=== PATIENT | male | born 1965 | race Caucasian/White ===

== ENCOUNTER 2025-05-04 15:08 | Outpatient (AMB) | payer OTHER, SELFPAY ==
--- OUTSIDE RECORDS SUMMARY | 2025-05-04 18:18 | XMS_ITS ---
Author Name [facility] Organization Unknown Care Team Organization Name Specialty Phone Email Start Date End Da te [facility] Ranjana Primary Care 01/01/2023 04/14/2024 [facility] Ana Paula Black Primary Care 07/04/2022 4
--- OUTSIDE RECORDS SUMMARY | 2025-05-04 18:19 | XMS_ITS | Clinical Summary ---
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 01/08/2025 Low libido 11/03/2024 Allergic rhinitis 11/24/2005 Immunizations Name Administration Dates Next Due PPD Test 05/26/2002 Tdap Tetanus diptheria acell ular pertussis (Boostrix; Adacel) 7yo and older 10/09/2022,01/13/2009 Surgical History Surgery Date Site/Laterality Comments APPENDECTOMY age 14 PROCEDURE: HISTORICAL APPENDECTOMY MULTIPLE TOOTH EXTRACTIONS age 21 PROCEDURE: EACH ADD TOOTH EXTRACTION; COMMENT: 2 extracted COLONOSCOPY 09/01/16 PROCEDURE: HISTORICAL COLONOSCOPY; COMMENT: hemorrhoids; repeat in 10 yrs Medical History Medical History Date Comments Allergic rhinitis, cause unspecified DX:Allergic rhinitis, cause unspecified Family History Medical History Relation Name Comments Heart attack Father Stroke Maternal Grandfather No Known Problems Mother Prostate cancer Paternal Grandfather Breast cancer Paternal Grandmother No Known Problems Sister 1 No Known Problems Sister 2 No Known Problems Sister 3 ADD / ADHD Son 1 ADD / ADHD Son 2 Relation Name Status Comments Father Alive NE Maternal Grandfather (Age 80's) stroke Maternal Grandmother UNK Mother Alive healthy Paternal Grandfather (Age 90'S) CA PROSTATE Paternal Grandmother (Age 60'S) CA BREAST Sister 1 Alive Healthy Sister 2 Alive Healthy Sister 3 Alive Healthy Son 1 Alive Healthy Son 2 Alive ADD Social History Tobacco Use Types Packs/Day Years Used Date Smoking Tobacco: Never Smokeless Tobacco: Never Tobacco Cessation:Counseling Given: Not Answered Alcohol Use Standard Drinks/Week Comments Yes 0 (1 standard drink = 0.6 oz pur e alcohol) Housing Instability Answer Date Recorde d Are you worried that in the next 2 months you may not have stable housing? No 11/02/2024 Food Access & Nutrition Answer Date Rec orded Do you have access to a vari ety of food including fruits and vegetables? Yes 11/02/2024 Access to Healthcare Answer Date Record ed Within the last 3 months, ho jose antonio many times did you visit the emergency department for your medical care? 0 11/02/2024 Health Literacy Answer Date Recorded How often do you need to hav e someone help you when you read instructions, pamphlets, or other written material from your doctor or pharmacy? Never 11/02/2024 Caregiver: How often do you need to have someone help you when you read instructions, pamphlets, or other written material from your doctor or pharmacy? Not on file 11/02/2024 Financial Risk Answer Date Recorded How hard is it for you to pa y for the very basics like food, housing, medical care, and air conditioning / heating? Not very hard 11/02/2024 Transportation Answer Date Recorded Has the lack of transportati on kept you from meetings, work, or from getting things needed for daily living? No Has the lack of transportati on kept you from medical appointments or from getting medications? No 11/02/2024 Social Isolation Answer Date Recorded How often do you feel lonely or isolated from th ose around you? Never 11/02/2024 Food Risk Answer Date Recorded Within the past 12 months we worried whether our food would run out before we got money to buy more. Never true 11/02/2024 Within the past 12 months th e food we bought just didn't last and we didn't have money to get more. Never true 11/02/2024 Dependent Care Answer Date Recorded Do you need help finding or paying for care for your loved ones. For example, child care provider or elderly care for an older adult? No 11/02/2024 Education Answer Date Recorded Do you think completing more education or training, like finishing a GED, going to college, or learning a trade, would be helpful for you? No 11/02/2024 Employment and Income Answer Date Recor ded During the last four weeks, have you been actively looking for work? No 11/02/2024 Living Situation Answer Date Recorded What is your living situation? 0 11/02/2024 Sex and Gender Information Value Date Recorded Sex Assigned at Male 05/24/2022 1:15 PM EDT Legal Sex Male 1:03 PM EDT Gender Identity Male 05/24/2022 1:15 PM EDT Sexual Orientation Straight 05/24/2022 1: 15 PM EDT Obstetrics History Last Filed Vital Signs Vital Sign Reading Time Taken Comments Blood Pressure 110/62 01/27/2025 11:23 AM EDT Pulse 78 01/27/2025 11:23 AM EDT Temperature 36.6 C (97.9 F) 01/27/2025 11:23 AM EDT Respiratory Rate 16 01/27/2025 11:23 AM EDT Oxygen Saturation - - Inhaled Oxygen Concentration - - Weight 97.1 kg (214 lb) 01/27/2025 11:23 AM EDT Height 184.8 cm (6' 0.76 ) 01/27/2025 11:23 AM E DT Body Mass Index 28.42 01/27/2025 11:23 AM EDT Plan of Treatment Upcoming Encounters Date Type Department Care Team (Late st Contact Info) Description 11/03/2025 8:45 AM EDT Office Visit Adult Medicine [facility] [address] [place] [address] Emili Chilel MD [address] [place] [address] Health Maintenance Due Date Last Done Comments Hepatitis B Vaccines (1 of 3 - 19+ 3-dose series) 1985 Pneumococcal Vaccine: 50+ Years (1 of 1 - PCV) 2016 Zoster Vaccines (1 of 2) 2016 COVID-19 Vaccine ( - 2024-2 6 season) 2025 01/11/2021, 12/21/2020 Influenza Vaccine (#1) 2025 Social Influencers of Health Screening 11/02/2025 11/02/2024 Colorectal Cancer Screening: Colonoscopy 09/01/2026 09/01/2016 Cholesterol Screening (Lipid Panel) 01/06/2030 01/06/2025, 11/06/2022 DTaP,Tdap,and Td Vaccines (3 - Td or Tdap) 10/09/2032 10/09/2022, 01/13/2009 HIV Screening Completed 02/14/2007 Hepatitis C Screening Completed 11/06/2022 Depression Screening Completed 11/02/2024 HIB Vaccines Aged Out No longer eligi ble based on patient's age to complete this topic HPV Vaccines Aged Out No longer eligi ble based on patient's age to complete this topic Hepatitis A Vaccines Aged Out No long er eligible based on patient's age to complete this topic IPV Vaccines Aged Out No longer eligi ble based on patient's age to complete this topic MMR Vaccines Aged Out No longer eligi ble based on patient's age to complete this topic Meningococcal ACWY Vaccine Aged Out N o longer eligible based on patient's age to complete this topic Meningococcal B Vaccine Aged Out No l onger eligible based on patient's age to complete this topic RSV Immunization Patients Under 20 months Aged Out No longer eligible b ased on patient's age to complete this topic Varicella Vaccines Aged Out No longer eligible based on patient's age to complete this topic Procedures Procedure Name Priority Date/Time Associated Diagnosis Comments FOLLICLE STIMULATING HORMONE Routine 02/10/2025 9:23 AM EDT Low testosterone level in male LUTEINIZING HORMONE Routine 02/10/2025 9 :23 AM EDT Low testosterone level in male TESTOSTERONE, TOTAL Routine 02/10/2025 9 :23 AM EDT Low testosterone level in male PROLACTIN Routine 02/10/2025 9:23 AM EDT Low testosterone level in male INSULIN-LIKE GROWTH FACTOR Routine 02/10/2025 9:23 AM EDT Low testosterone level in male CORTISOL Routine 02/10/2025 9:23 AM EDT Low testosterone level in male PROSTATE SPECIFIC ANTIGEN SCREEN Routine 02/10/2025 9:23 AM EDT Low testosterone level in male HEMOGLOBIN AND HEMATOCRIT Routine 02/10/2025 9:23 AM EDT Low testosterone level in male THYROID STIMULATING HORMONE Routine 02/10/2025 9:23 AM EDT Low testosterone level in male THYROXINE FREE Routine 02/10/2025 9:23 AM EDT Low testosterone level in male LIPID PANEL WITH REFLEX TO DIRECT LDL Routine 01/06/2025 1:10 PM EDT Routine general medical examination at a health care facility HEPATITIS C SCREENING Routine 11/06/2022 COLONOSCOPY Routine 09/01/2016 HIV SCREENING Routine 02/14/2007 from Last 3 Months or Most Recently Relevant to Health Maintenance Results * Prostate specific antigen screen (02/10/2025 9:23 AM EDT) PSA 1.72 0.00 - 4.00 ng/mL LAB CHEMISTRY METHOD 02/10/2025 4:20 PM EDT [facility] Blood Venous blood specimen / Unknown Venipuncture / Unknown 02/10/2025 9:23 AM EDT 02/10/2025 9:23 AM EDT Narrative [facility] - 02/10/2025 4:20 PM EDT The Siemens Advia Centaur Chemiluminescent Immunoassay is used. Results obtained with different assay methods or kits cannot be used interchangeably. Results cannot be interpreted as absolute evidence of the presence or absence of malignant disease. us Colin Casanova MD LAB BLOOD ORDERABLES Final Resul t [facility] [address] [place] [address], [place] [phone] * Hemoglobin and hematocrit (02/10/2025 9:23 AM EDT) [facility] Hemoglobin 14.9 13.5 - 17.5 g/dL LAB HEMETOLOGY METHOD 02/10/2025 12:19 PM EDT [facility] Hematocrit 44.9 42.0 - 54.0 % LAB HEMETOLOGY METHOD 02/10/2025 12:19 PM EDT [facility] Blood Venous blood specimen / Unknown Venipuncture / Unknown 02/10/2025 9:23 AM EDT 02/10/2025 9:23 AM EDT us Colin Casanova MD LAB BLOOD ORDERABLES Final Resul t Performing Organization Address City/[facility]/ZIP Co de Phone Number [facility] [address] [place] [address], [place] [phone] * Prolactin (02/10/2025 9:23 AM EDT) [facility] Prolactin 6.60 2.50 - 17.40 ng/mL LAB CHEMISTRY METHOD 02/10/2025 3:14 PM EDT [facility] Blood Venous blood specimen / Unknown Venipuncture / Unknown 02/10/2025 9:23 AM EDT 02/10/2025 9:23 AM EDT us Colin Casanova MD LAB BLOOD ORDERABLES Final Resul t [facility] [address] [place] [address], [place] [phone] * Insulin-like growth factor (02/10/2025 9:23 AM EDT) [facility] Insulin-like Growth Factor 1 158 68 - 247 ng/mL 02/12/2025 2:53 PM EDT [facility] Comment: Test performed at [facility], [address], [place] [address] Cristal Millan MD, PhD - Recycling Worker Blood Venous blood specimen / Unknown Venipuncture / Unknown 02/10/2025 9:23 AM EDT 02/10/2025 9:23 AM EDT Colin Casanova MD LAB BLOOD ORDERABLES Final Resul t Performing Organization Address City/[facility] Co de Phone Number [facility] [address] [place] [address] * Thyroid stimulating hormone (02/10/2025 9:23 AM EDT) TSH 1.14 0.40 - 4.00 mcIU/mL LAB CHEMISTRY METHOD 02/10/2025 6:06 PM EDT [facility] Blood Venous blood specimen / Unknown Venipuncture / Unknown 02/10/2025 9:23 AM EDT 02/10/2025 9:23 AM EDT Colin Casanova MD LAB BLOOD ORDERABLES Final Resul t Performing Organization Address [facility] de Phone Number [facility] [address] [place] [address], [place] [phone] * Thyroxine free (02/10/2025 9:23 AM EDT) Free T4 1.45 0.70 - 1.80 ng/dL LAB CHEMISTRY METHOD 02/10/2025 4:20 PM EDT [facility] Blood Venous blood specimen / Unknown Venipuncture / Unknown 02/10/2025 9:23 AM EDT 02/10/2025 9:23 AM EDT us Colin Casanova MD LAB BLOOD ORDERABLES Final Resul t Performing Organization Address City/[facility] Co de Phone Number [facility] [address] [place] [address], [place] [phone] * Testosterone, total (02/10/2025 9:23 AM EDT) Testosterone 327 229 - 902 ng/dL LAB CHEMISTRY METHOD 02/10/2025 6:05 PM EDT [facility] Blood Venous blood specimen / Unknown Venipuncture / Unknown 02/10/2025 9:23 AM EDT 02/10/2025 9:23 AM EDT Colin Casanova MD LAB BLOOD ORDERABLES Final Resul t [facility] [address] [place] [address], [place] [phone] * Luteinizing hormone (02/10/2025 9:23 AM EDT) Luteinizing Hormone 4.8 1.2 - 10.6 mIU/mL LAB CHEMISTRY METHOD 02/10/2025 3:14 PM EDT [facility] Blood Venous blood specimen / Unknown Venipuncture / Unknown 02/10/2025 9:23 AM EDT 02/10/2025 9:23 AM EDT Colin Casanova MD LAB BLOOD ORDERABLES Final Resul t [facility] [address] [place] [address], [place] [phone] * Follicle stimulating hormone (02/10/2025 9:23 AM EDT) Follicle Stimulating Hormone 5.1 0.7 - 10.8 mIU/mL LAB CHEMISTRY METHOD 02/10/2025 3:14 PM EDT [facility] Blood Venous blood specimen / Unknown Venipuncture / Unknown 02/10/2025 9:23 AM EDT 02/10/2025 9:23 AM EDT Colin Casanova MD LAB BLOOD ORDERABLES Final Resul t Performing Organization Address [facility]/ZIP Co de Phone Number [facility] [address] [place] [address], [place] [phone] * Cortisol (02/10/2025 9:23 AM EDT) Cortisol 15.3 mcg/dL LAB CHEMISTRY METHOD 02/10/2025 6:04 PM EDT [facility] Blood Venous blood specimen / Unknown Venipuncture / Unknown 02/10/2025 9:23 AM EDT 02/10/2025 9:23 AM EDT Narrative [facility] - 02/10/2025 6:04 PM EDT CORTISOL REFERENCE RANGE 8 AM SPEC: 5.0-23.0 mcg/dL 4 PM SPEC: 3.0-16.0 mcg/dL 8 PM SPEC: <5.0 mcg/dL Colin Casanova MD LAB BLOOD ORDERABLES Final Resul t Performing Organization Address [facility]/ZIP Co de Phone Number [facility] [address] [place] [address], [place] [phone] * (ABNORMAL) Lipid panel with reflex to direct LDL (01/06/2025 1:10 PM EDT) Cholesterol 211(H) 0 - 200 mg/dL LAB CHEMISTRY METHOD 01/06/2025 4:34 PM EDT [facility] Triglycerides 194(H) 0 - 150 mg/dL LAB CHEMISTRY METHOD 01/06/2025 4:34 PM EDT [facility] HDL 63 >=40 mg/dL LAB CHEMISTRY METHOD 01/06/2025 4:34 PM EDT [facility] LDL Calculated 109(H) 0 - 100 mg/dL LAB CHEMISTRY METHOD 01/06/2025 4:34 PM EDT [facility] VLDL Cholesterol Yousif 38.8 mg/dL LAB CHEMISTRY METHOD 01/06/2025 4:34 PM EDT [facility] Non HDL Chol. (LDL+VLDL) 148(H) <145 mg/dL LAB CHEMISTRY METHOD 01/06/2025 4:34 PM EDT [facility] Chol/HDL Ratio 3.3 0.0 - 4.4 LAB CHEMISTRY METHOD 01/06/2025 4:34 PM EDT [facility] Blood Venous blood specimen / Unknown Venipuncture / Unknown 01/06/2025 1:10 PM EDT 01/06/2025 1:10 PM EDT Emili Chilel MD LAB BLOOD ORDERABLES Final Resul t [facility] [address] [place] [address], * Hepatitis C Screening (11/06/2022) Hepatitis C Screening ABSTRACTED Tonya John MD HEALTH MAINTENANCE Final Result * Colonoscopy (09/01/2016) Pathologist [facility] Colonoscopy NO INTERPRETATION , ABSTRACTED Anatomical Region Laterality Modality Other Tonya John MD HEALTH MAINTENANCE Final Result * HIV Screening (02/14/2007) Pathologist [facility] HIV Screening ABSTRACTED Tonya John MD HEALTH MAINTENANCE Final Result from Last 3 Months or Most Recently Relevant to Health Maintenance Insurance [facility] Care Teams Destination Specialist Relationship Specialty Start Date End Date Emili Chilel MD [address] [place] [id number] PCP - General Internal Medicine 12/21/20
== END 2025-05-04 15:09 | disposition home or self-care (01) ==
LOC: HO.HMGAL 15:08
PROVIDERS: PCP Internal Medicine; Visit Provider Registered Nurse Emergency
DX: J30.89 Other allergic rhinitis (principal)
CPT/HCPCS: 95117; 95165

== ENCOUNTER 2025-06-01 12:01 | Outpatient (AMB) | payer OTHER, SELFPAY ==
--- OUTSIDE RECORDS SUMMARY | 2025-06-01 14:32 | XMS_ITS | Clinical Summary ---
Author Organization [facility] [place] Address [address] [place] [address] Care Team Providers Care Commissioning Specialist Name Role Phone Emili Chilel MD Primary Care Provider [phone] Allergies Active Allergy Reactions Criticality Noted Date Comments Dog Dander Medium 11/24/2005 Maple Flavor Runny nose Medium 11/24/2005 maple pollen Ragweed Runny nose Medium 11/24/2005 Medications No known medications Active Problems Problem Noted Date Diagnosed Date Low testosterone level in male 01/08/2025 Low libido 11/03/2024 Allergic rhinitis 11/24/2005 Immunizations Immunization Administration Dates Next Due PPD Test 05/26/2002 [...] 2 Relation Name Status Comments Father Alive MD Maternal Grandfather (Age 80's) stroke Maternal Grandmother [...] your loved ones. For example, child care sitter or elderly care for an older adult? [...] Date Recorded What is your living situation? Unrecognized valu e 11/02/2024 Sex and Gender Information Value Date [...] Medicine [facility] [address] [place] [phone] Emili Chilel MD [address] [place] [address] Health Maintenance Due Date Last Done Comments Hepatitis B Vaccines (1 of 3 - 19+ 3-dose series) 1985 Pneumococcal Vaccine: 50+ Years (1 of 1 - PCV) 2016 Zoster Vaccines (1 of 2) 2016 COVID-19 Vaccine (3 - 2024-2 6 season) 2025 01/11/2021, 12/21/2020 Influenza Vaccine (#1) 2025 Social Influencers of Health Screening 11/02/2025 11/02/2024 Colorectal Cancer Screening: Colonoscopy 09/01/2026 09/01/2016 Cholesterol Screening (Lipid Panel) 01/06/2030 01/06/2025, 11/06/2022 DTaP,Tdap,and Td Vaccines (3 - Td or Tdap) 10/09/2032 10/09/2022, 01/13/2009 RSV Immunization Adult Patients (1 - 1-dose 75+ series) 2041 HIV Screening Completed 02/14/2007 Hepatitis C Screening [...] Procedure Name Priority Date/Time Associated Diagnosis Comments LIPID PANEL WITH REFLEX TO DIRECT LDL Routine 01/06/2025 1:10 PM EDT Routine general medical examination at a health care facility HEPATITIS C SCREENING Routine 11/06/2022 COLONOSCOPY Routine 09/01/2016 HIV SCREENING Routine 02/14/2007 from Last 3 Months or Most Recently Relevant to Health Maintenance Results * (ABNORMAL) Lipid panel with reflex to direct LDL (01/06/2025 1:10 PM EDT) [facility] Cholesterol 211(H) 0 - 200 mg/dL LAB CHEMISTRY METHOD 01/06/2025 4:34 PM EDT [facility] Triglycerides 194(H) 0 - 150 mg/dL LAB CHEMISTRY METHOD 01/06/2025 4:34 PM EDT [facility] HDL 63 >=40 mg/dL LAB CHEMISTRY METHOD 01/06/2025 4:34 PM EDT [facility] LDL Calculated 109(H) 0 - 100 mg/dL LAB CHEMISTRY METHOD 01/06/2025 4:34 PM EDT [facility] VLDL Cholesterol Yousif 38.8 mg/dL LAB CHEMISTRY METHOD [facility]/06[facility]25 [facility] Non HDL Chol. (LDL+VLDL) 148(H) <145 mg/dL LAB CHEMISTRY METHOD 01/06/2025 4:34 PM EDT [facility] Chol/HDL Ratio 3.3 0.0 - 4.4 LAB CHEMISTRY METHOD 01/06/2025 4:34 PM T [facility] Blood Venous blood specimen / Unknown Venipuncture / Unknown 01/06/2025 1:10 PM EDT 01/06/2025 1:10 PM EDT Emili Chilel MD LAB BLOOD ORDERABLES Final Resul t [facility] [address] [place] [address], * Hepatitis C Screening (11/06/2022) [facility] Hepatitis C Screening ABSTRACTED Historical Provider HEALTH MAINTENANCE Final Result * Colonoscopy (09/01/2016) [facility] Colonoscopy NO INTERPRETATION , ABSTRACTED Anatomical Region Laterality Modality Other Historical Provider HEALTH MAINTENANCE Final Result * HIV Screening (02/14/2007) HIV Screening ABSTRACTED us Historical Provider HEALTH MAINTENANCE Final Result from Last 3 Months or Most Recently Relevant to Health Maintenance Insurance [facility] Care Teams Commissioning Specialist Relationship Specialty Start Date End Date Emili Chilel MD [address] [place] [phone] PCP - General Internal Medicine 12/21/20
== END 2025-06-01 12:05 | disposition home or self-care (01) ==
LOC: HO.HMGAL 12:01
PROVIDERS: Visit Provider Registered Nurse Emergency
DX: J30.89 Other allergic rhinitis (principal)
CPT/HCPCS: 95117; 95165

== ENCOUNTER 2025-07-22 09:12 | Outpatient (AMB) | payer OTHER, SELFPAY ==
--- OUTSIDE RECORDS SUMMARY | 2025-07-22 10:05 | XMS_ITS | Clinical Summary ---
Author Organization [facility] [place] Address [address] [place] [address] Care Team Providers Care Preschool Head Teacher Name Role Phone Emili Chilel MD Primary Care Provider [phone] Allergies Active Allergy Reactions Criticality Noted Date [...] 2 Relation Name Status Comments Father Alive [place] Maternal Grandfather (Age 80's) stroke Maternal Grandmother [...] for your loved ones. For example, child nurse or elderly care for an older adult? [...] 8:45 AM EDT Office Visit Adult Medicine [facility] [address] [place] [phone] Emili Chilel MD [address] [place] [address] Health Maintenance Due Date Last Done Comments [...] to direct LDL (01/06/2025 1:10 PM EDT) [facility] Cholesterol 211(H) 0 - 200 mg/dL LAB CHEMISTRY METHOD 01/06/2025 4:[address] [facility] Triglycerides 194(H) 0 - 150 mg/dL LAB CHEMISTRY METHOD 01/06/2025 4:[address] [facility] HDL 63 >=40 mg/dL LAB CHEMISTRY METHOD 01/06/2025 4:[address] [facility] LDL Calculated 109(H) 0 - 100 mg/dL LAB CHEMISTRY METHOD 01/06/2025 4:[address] [facility] VLDL Cholesterol Yousif 38.8 mg/dL LAB CHEMISTRY METHOD [facility]25 [facility] Non HDL Chol. (LDL+VLDL) 148(H) <145 mg/dL LAB CHEMISTRY METHOD 01/06/2025 4:[address] [facility] Chol/HDL Ratio 3.3 0.0 - 4.4 LAB CHEMISTRY METHOD 01/06/2025 4:[address] [facility] Blood Venous blood specimen / Unknown Venipuncture / Unknown 01/06/2025 1:10 PM EDT 01/06/2025 1:10 PM EDT Emili Chilel MD LAB BLOOD ORDERABLES Final Resul t [facility] [address] [place] [address], * Hepatitis C Screening (11/06/2022) [facility] Hepatitis C Screening ABSTRACTED Historical Provider HEALTH MAINTENANCE Final Result * Colonoscopy (09/01/2016) [facility] Colonoscopy NO INTERPRETATION , ABSTRACTED Anatomical Region Laterality Modality Other Historical Provider HEALTH MAINTENANCE Final Result * HIV Screening (02/14/2007) HIV Screening ABSTRACTED us Historical Provider HEALTH MAINTENANCE Final Result from Last 3 Months or Most Recently Relevant to Health Maintenance Insurance [facility] Care Teams Preschool Head Teacher Relationship Specialty Start Date End Date Emili Chilel MD [address] [place] [phone] PCP - General Internal Medicine 12/21/20
== END 2025-07-22 09:14 | disposition home or self-care (01) ==
LOC: HO.HMGAL 09:12
PROVIDERS: Visit Provider Registered Nurse Emergency
DX: J30.89 Other allergic rhinitis (principal)
CPT/HCPCS: 95117; 95165

== ENCOUNTER 2025-08-17 13:51 | Outpatient (AMB) | payer OTHER, SELFPAY ==
--- OUTSIDE RECORDS SUMMARY | 2025-08-17 17:16 | XMS_ITS | Clinical Summary ---
Author Organization [facility] Address [address] [place] [address] Care Team Providers Care Food Sanitarian Name Role Phone Emili Chilel MD Primary Care Provider [phone] Allergies Active Allergy Reactions Criticality Noted Date [...] 2 Relation Name Status Comments Father Alive [place] Maternal Grandfather (Age 80's) stroke Maternal Grandmother [...] care for your loved ones. For example, child's nurse or elderly care for an older [...] Orientation Straight 05/24/2022 1: 15 PM EDT Last Filed Vital Signs Vital Sign Reading [...] 8:45 AM EDT Office Visit Adult Medicine [facility] [address] [place] [address] Emili Chilel MD [address] [place] [address] Health Maintenance Due Date Last Done Comments [...] LAB CHEMISTRY METHOD 01/06/2025 4:34 PM EDT [facility] Triglycerides 194(H) 0 - 150 mg/dL LAB CHEMISTRY METHOD 01/06/2025 4:34 PM EDT [facility] HDL 63 >=40 mg/dL LAB CHEMISTRY METHOD 01/06/2025 4:34 PM EDT [facility] LDL Calculated 109(H) 0 - 100 mg/dL LAB CHEMISTRY METHOD 01/06/2025 4:34 PM EDT [facility] VLDL Cholesterol Yousif 38.8 mg/dL LAB CHEMISTRY METHOD 01/06/2025 4:34 PM EDT [facility] Non HDL Chol. (LDL+VLDL) 148(H) <145 mg/dL LAB CHEMISTRY METHOD 01/06/2025 4:34 PM EDT [facility] Chol/HDL Ratio 3.3 0.0 - 4.4 LAB CHEMISTRY METHOD 01/06/2025 4:34 PM EDT [facility] Blood Venous blood specimen / Unknown Venipuncture / Unknown 01/06/2025 1:10 PM EDT 01/06/2025 1:10 PM EDT Emili Chilel MD LAB BLOOD ORDERABLES Final Resul t [facility] [address] [place] [address], * Hepatitis C Screening (11/06/2022) [facility] Hepatitis C Screening ABSTRACTED Historical Provider HEALTH MAINTENANCE Final Result * Colonoscopy (09/01/2016) [facility] Colonoscopy NO INTERPRETATION , ABSTRACTED Anatomical Region Laterality Modality Other Historical Alvaro RODRIGUEZ HEALTH MAINTENANCE Final Result * HIV Screening (02/14/2007) HIV Screening ABSTRACTED Historical Provider HEALTH MAINTENANCE Final Result from Last 3 Months or Most Recently Relevant to Health Maintenance Insurance [facility] Care Teams Food Sanitarian Relationship Specialty Start Date End Date Emili Chilel MD [address] [place] [id number] PCP - General Internal Medicine 12/21/20
== END 2025-08-17 13:51 | disposition home or self-care (01) ==
LOC: HO.HMGAL 13:51
PROVIDERS: Visit Provider Registered Nurse Emergency
DX: J30.89 Other allergic rhinitis (principal)
CPT/HCPCS: 95117; 95165